=== PATIENT | female | born 1935 | race Caucasian/White ===

== ENCOUNTER 2022-08-05 10:27 | Day surgery (SDC) | payer OTHER ==
[~2022-08-05 10:27] MED LIST: FERRIC CARBOXYMALTOSE 750 MG in SODIUM CHLORIDE 250 ML IVPB ONE
[2022-08-05 15:55] VITALS: BP 131/59; PULSE 75; RESP 20; TEMP 97.7
== END 2022-08-05 13:10 | disposition home or self-care (01) ==
LOC: JONCNONCHE 10:27
PROVIDERS: ATTEND Internal Medicine Hematology & Oncology
PROC: 3E033GC Introduction of Other Therapeutic Substance into Peripheral Vein, Percutaneous Approach (ICD-10-PCS; principal; 2022-08-05)
DX: D50.9 Iron deficiency anemia, unspecified (principal)
CPT/HCPCS: 96365; J1439